=== PATIENT | female | born 1990 | race Two or more races ===

== ENCOUNTER → 2019-07-11 | Outpatient (CLI) | payer OTHER | END | disposition home or self-care (01) | LOC: PRENATAL 09:14 | PROVIDERS: ATTEND Obstetrics & Gynecology Maternal & Fetal Medicine | DX: O36.80X1 Pregnancy with inconclusive fetal viability, fetus 1 (principal); Z36.89 Encounter for other specified antenatal screening ==

== ENCOUNTER → 2019-08-29 | Outpatient (CLI) | payer OTHER | END | disposition home or self-care (01) | LOC: PRENATAL 08:56 | PROVIDERS: ATTEND Obstetrics & Gynecology Maternal & Fetal Medicine | DX: O35.0XX1 Maternal care for (suspected) central nervous system malformation in fetus, fetus 1 (principal); O35.3XX0 Maternal care for (suspected) damage to fetus from viral disease in mother, not applicable or unspecified; Z36.89 Encounter for other specified antenatal screening ==